=== PATIENT | male | born 1985 | race Caucasian/White ===

== ENCOUNTER 2021-03-18 23:42 | Emergency (ER) | payer BC, OTHER ==
[2021-03-18 23:48] VITALS: BP 147/86; PULSE 95; TEMP 98.1; BMI 28.5
[2021-03-18] MEDS ORDERED: DIPHTH,PERTUSS(ACELL),TET 0.5 ML DISP.SYRIN IM ONE (23:58)
== END 2021-03-19 00:16 | disposition home or self-care (01) ==
LOC: FER 23:42
PROC: 3E0234Z Introduction of Serum, Toxoid and Vaccine into Muscle, Percutaneous Approach (ICD-10-PCS; principal; 2021-03-18)
DX: S40.812A Abrasion of left upper arm, initial encounter (principal); S40.811A Abrasion of right upper arm, initial encounter; W03.XXXA Other fall on same level due to collision with another person, initial encounter; V48.4XXA Person boarding or alighting a car injured in noncollision transport accident, initial encounter
CPT/HCPCS: 90715; 99284-25